=== PATIENT | male | born 1940 | race Caucasian/White ===

== ENCOUNTER → 2017-10-13 | Outpatient (CLI) | payer OTHER | LOC: FCPNEURO 23:06 | PROVIDERS: ATTEND Psychiatry & Neurology Sleep Medicine | DX: G47.33 Obstructive sleep apnea (adult) (pediatric) (principal); J96.11 Chronic respiratory failure with hypoxia ==

== ENCOUNTER 2018-02-14 14:46 | Emergency (ER) | payer OTHER ==
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
[2018-02-14] MEDS ORDERED: NS 1,000 ML IV ONE (15:18)
[2018-02-14 15:36] LABS: PLATELET COUNT 152 10^3/uL (150-400)
[2018-02-14] MEDS ORDERED: IOPAMIDOL (ISOVUE-300) 100 ML BTL ONE ×2 (15:58→17:19)
[2018-02-14] MEDS ORDERED: metroNIDAZOLE 500 MG TAB PO ONE (18:07)
[2018-02-14] MEDS ORDERED: CIPROFLOXACIN 500 MG TAB PO ONE (18:07)
[2018-02-14 18:19] VITALS: BP 141/59
== END 2018-02-14 18:21 | disposition home or self-care (01) ==
DX: K57.32 Diverticulitis of large intestine without perforation or abscess without bleeding (principal); E11.9 Type 2 diabetes mellitus without complications; I10 Essential (primary) hypertension; E86.9 Volume depletion, unspecified; Z79.82 Long term (current) use of aspirin; Z90.49 Acquired absence of other specified parts of digestive tract
CPT/HCPCS: 74177; 96360; 99285; Q9967; 82947-QW

== ENCOUNTER 2018-07-16 23:09 | Emergency (ER) | payer OTHER ==
--- NOTE | 2018-07-16 23:37 | EDPHY ---
H & P Stated Complaint: HIGH BP 210/? @ 2215-started Losartan 2 days. Time Seen by Provider: 07/16/18 23:19 HPI/ROS: HPI The patient presents with elevated blood pressure reading at home tonight. He had an initial reading of 210/80, and then 205 systolic. This was associated with a very mild frontal headache which he describes as barely noticeable. The patient has a history of labile hypertension. He has been taking hydrochlorothiazide 25 mg with lisinopril 20 mg twice daily and amlodipine 2.5 mg daily. Amlodipine was discontinued on June 24 because of erectile dysfunction. He was switched from lisinopril to losartan 100 mg once daily 2 days ago and had 2 doses of it. He has been checking his blood pressure about once a day and usual blood pressures are about 140 over 60s to 70s. He has been followed by Dr. Block. REVIEW OF SYSTEMS 10 systems were reviewed and negative with the exception of the elements mentioned in the history of present illness. PMHx: Hypertension, aortic valve replacement, CAD, anxiety, rectal dysfunction Soc Hx: No tobacco use PHYSICAL General Appearance: Alert, no distress Eyes: Pupils equal and round no pallor or injection ENT, Mouth: Mucous membranes moist Respiratory: There are no retractions, lungs are clear to auscultation Cardiovascular: Regular rate and rhythm , systolic murmur present Gastrointestinal: Abdomen is soft and non-tender, no masses, bowel sounds normal Neurological: A&O, moves all extremities Skin: Warm and dry, no rashes Musculoskeletal: Neck is supple non tender Extremities: symmetrical, full range of motion Psychiatric: Patient is oriented X 3, there is no agitation Source: Patient, Old records Exam Limitations: No limitations - Personal History Current Tetanus/Diphtheria Vaccine: Unsure Current Tetanus Diphtheria and Acellular Pertussis (TDAP): Unsure - Medical/Surgical History Hx Asthma: No Hx Chronic Respiratory Disease: No Hx Diabetes: Yes Hx Cardiac Disease: Yes Hx Renal Disease: No Hx Cirrhosis: No Hx Alcoholism: No Hx HIV/AIDS: No Hx Splenectomy or Spleen Trauma: No Other PMH: HTN-sees Umair, Aneurysm repair thoriacic aortic artery and aortic valve replacement (2010), Diabetes II, Enlarged Prostate. - Social History Smoking Status: Former smoker Constitutional: Initial Vital Signs Temperature (C) 36.5 C 07/16/18 23:11 Heart Rate 52 L 07/16/18 23:11 Respiratory Rate 16 07/16/18 23:11 Blood Pressure 182/95 H 07/16/18 23:11 O2 Sat (%) 95 07/16/18 23:11 O2 Delivery Mode Room Air Allergies/Adverse Reactions: No Known Allergies Allergy (Verified 07/16/18 23:11) Home Medications: Medication Instructions Recorded Aspirin [Aspirin 81mg (OTC)] 81 mg PO DAILY 09/23/15 Hydrochlorothiazide [HCTZ (RX)] 25 mg PO DAILY 09/23/15 LORazepam [Ativan] 0.5 mg PO BID 09/23/15 Ranitidine HCl 300 mg PO DAILY 09/23/15 Sildenafil Citrate [Viagra 25 MG 25 mg PO 09/23/15 (RX)] Co Q-10 02/14/18 Fish Oil 1,000 mg Softgel 02/14/18 Vitamin B Complex 02/14/18 metroNIDAZOLE [Metronidazole] 500 mg PO TID #21 tablet 02/14/18 Carvedilol 07/16/18 Losartan Potassium 07/16/18 Medical Decision Making Differential Diagnosis: 78-year-old male with hypertension, CAD, aortic valve replacement presents with elevated blood pressure readings tonight with no concerning symptoms. He does report a very mild headache though has a normal neurologic exam. He is in the process of starting losartan which he has taken for the last 2 days. He has stopped taking lisinopril 2 days ago. I suspect the change in medications is causing elevated blood pressure readings. I am not worried about hypertensive emergency such as renal failure, CHF exacerbation, ACS, aortic dissection, stroke given lack of concerning symptoms and normal physical exam. I had a long conversation with the patient on management of hypertension and we discussed that it is the trend that we are most concerned with. I suspect it will take a few more days for his body to equilibrate to the new medications. I have recommended that he check his blood pressure once daily at the same time each day. He can check it additionally if he is having any ongoing symptoms. He is to follow up with Dr. Block in the next 1-2 weeks if he has ongoing elevated blood pressure readings. Departure - Departure Disposition: Home, Routine, Self-Care Clinical Impression: Elevated blood pressure reading in office with diagnosis of hypertension Condition: Good Instructions: Chronic Hypertension (ED) Additional Instructions: I recommend that you continue your medications as prescribed. I would recommend that you check your blood pressure 1 time per day at the same time if possible. Please follow-up with Dr. Block if you continue to have high blood pressure readings. Please come to the emergency department if you develop weakness, headache, chest pain, abdominal pain. Referrals: Med Moncada MD [Primary Care Provider] - As per Instructions Sanchez Block MD [Medical Doctor] - As per Instructions
[2018-07-16 23:55] VITALS: BP 179/112
== END 2018-07-16 23:55 | disposition home or self-care (01) ==
DX: I10 Essential (primary) hypertension (principal)

== ENCOUNTER 2018-09-12 09:36 | Emergency (ER) | payer OTHER ==
--- NOTE | 2018-09-12 10:01 | EDPHY ---
H & P Time Seen by Provider: 09/12/18 09:39 HPI/ROS: CHIEF COMPLAINT: Abdominal pain HISTORY OF PRESENT ILLNESS: Patient has a history of diverticulitis and aortic valve replacement, and thoracic aneurysm repair and bypass surgery. He says primary care doctor on Thursday of this week because of some epigastric abdominal pain and was prescribed omeprazole. Symptoms went away on Thursday but then on Thursday night started again and he was awake for about an hour between 2 and 3:00 a.m. Today with epigastric pain. He thinks this because of the medication. Currently he is asymptomatic and does not have any pain but says he has a little bit sore when he pushes on his anterior abdomen. No chest pain, no weakness or numbness in extremities, no vomiting or diarrhea. He did have some black coffee this morning which did not change his symptoms. No radiation. REVIEW OF SYSTEMS: Eye: no change in vision ENT: no sore throat Cardiac: no chest pain or syncope Pulmonary: no cough or SOB Abdomen: HPI Musculoskeletal: no back pain Skin: no rash Neuro: no headache Constitutional: no fever : no urinary symptoms A comprehensive 10 point review of systems is otherwise negative aside from elements mentioned in the history of present illness. PAST MEDICAL HISTORY: Vascular as above, hypertension, diabetes, prostatic enlargement. Cholecystectomy. Social history: Daily alcohol General Appearance: Alert and conversant, cooperative. Eyes: No scleral icterus. ENT, Mouth: Normal mucous membranes. Respiratory: Normal respiratory effort, breath sounds equal, lungs are clear to auscultation. Cardiovascular: Regular rate and rhythm. 3/6 systolic murmur. Gastrointestinal: Epigastric and right upper quadrant tenderness to palpation but no Cristina sign. No lower abdominal tenderness. No pulsatile mass. Normal bowel sounds. Neurological: Alert, face symmetric, normal motor and sensory in extremities. Ambulatory. he has fluent speech. Skin: Warm and dry, no rashes. Musculoskeletal: No peripheral edema. Psychiatric: Not agitated. Emergency Department course/MDM: I think it is unlikely that he has diverticulitis or ACS or intestinal perforation. He has had a cholecystectomy, common duct stone or pancreatitis would be possible. Patient's symptoms really have completely resolved and he is thinking that it is related to the omeprazole. I think vascular is unlikely, duodenal perforation unlikely. Plan for CBC chemistry lipase and LFT. EKG. The patient re-evaluated results discussed. Alternative methods of treating him for likely GERD discussed including but not limited to oral antacid, smaller meals, decreasing caffeine and alcohol. Smoking Status: Former smoker Constitutional: Initial Vital Signs Temperature (C) 36.6 C 09/12/18 09:45 Heart Rate 63 09/12/18 09:45 Respiratory Rate 16 09/12/18 09:45 Blood Pressure 182/74 H 09/12/18 09:45 O2 Sat (%) 96 09/12/18 09:45 O2 Delivery Mode Room Air Allergies/Adverse Reactions: No Known Allergies Allergy (Verified 07/16/18 23:11) Home Medications: Medication Instructions Recorded Amlodipine Besylate 09/12/18 Aspirin 09/12/18 Hydrochlorothiazide 09/12/18 LORazepam 09/12/18 Losartan Potassium 09/12/18 Omeprazole 09/12/18 Medical Decision Making - Diagnostics EKG Interpretation: 12-lead EKG interpreted by me; official reading is in computer system. My interpretation is sinus rhythm with left atrial enlargement and LVH, no acute ischemic changes. - Data Points Laboratory Results: Laboratory Results 09/12/18 10:00 09/12/18 10:00 09/12/18 09/12/18 10:00 10:00 WBC 8.08 10^3/uL 10^3/uL (3.80-9.50) RBC 5.05 10^6/uL 10^6/uL (4.40-6.38) Hgb 14.7 g/dL g/dL (13.7-17.5) Hct 41.7 % % (40.0-51.0) MCV 82.6 fL fL (81.5-99.8) MCH 29.1 pg pg (27.9-34.1) MCHC 35.3 g/dL g/dL (32.4-36.7) RDW 12.5 % % (11.5-15.2) Plt Count 153 10^3/uL 10^3/uL (150-400) MPV 9.8 fL fL (8.7-11.7) Neut % (Auto) 79.1 % H % (39.3-74.2) Lymph % (Auto) 12.7 % L % (15.0-45.0) [place] % (Auto) 6.6 % % (4.5-13.0) Eos % (Auto) 0.9 % % (0.6-7.6) Baso % (Auto) 0.2 % L % (0.3-1.7) Nucleat RBC Rel Count 0.0 % % (0.0-0.2) Absolute Neuts (auto) 6.39 10^3/uL 10^3/uL (1.70-6.50) Absolute Lymphs (auto) 1.03 10^3/uL 10^3/uL (1.00-3.00) Absolute Monos (auto) 0.53 10^3/uL 10^3/uL (0.30-0.80) Absolute Eos (auto) 0.07 10^3/uL 10^3/uL (0.03-0.40) Absolute Basos (auto) 0.02 10^3/uL 10^3/uL (0.02-0.10) Absolute Nucleated RBC 0.00 10^3/uL 10^3/uL (0-0.01) Immature Gran % 0.5 % % (0.0-1.1) Immature Gran # 0.04 10^3/uL 10^3/uL (0.00-0.10) Sodium 129 mEq/L L mEq/L (135-145) Potassium 3.8 mEq/L mEq/L (3.5-5.2) Chloride 95 mEq/L L mEq/L (97-110) Carbon Dioxide 26 mEq/l mEq/l (22-31) Anion Gap 8 mEq/L mEq/L (6-14) BUN 16 mg/dL mg/dL (7-23) Creatinine 0.8 mg/dL mg/dL (0.7-1.3) Estimated GFR > 60 Glucose 133 mg/dL H mg/dL (70-100) Calcium 8.8 mg/dL mg/dL (8.5-10.4) Total Bilirubin 1.1 mg/dL mg/dL (0.1-1.4) Conjugated Bilirubin 0.2 mg/dL mg/dL (0.0-0.5) Unconjugated Bilirubin 0.9 mg/dL mg/dL (0.0-1.1) AST 33 IU/L IU/L (17-59) ALT 47 IU/L IU/L (21-72) Alkaline Phosphatase 89 IU/L IU/L (38-126) Total Protein 6.5 g/dL g/dL (6.3-8.2) Albumin 4.0 g/dL g/dL (3.5-5.0) Lipase 91 IU/L IU/L (23-300) Departure - Departure Disposition: Home, Routine, Self-Care Clinical Impression: Abdominal pain Qualifiers: Abdominal location: upper abdomen, unspecified Qualified Code(s): R10.10 - Upper abdominal pain, unspecified Condition: Good Instructions: Acute Abdominal Pain (ED) Additional Instructions: Oral antacid such as Maalox or Mylanta or Tums as discussed over the next week. You can relax your dietary sodium restriction a little bit. Referrals: Med Moncada MD [Primary Care Provider] - 2-3 days, if not improved
--- NOTE | 2018-09-12 10:08 | CPEKG ---
Test Reason : OPEN Blood Pressure : / mmHG Vent. Rate : 054 BPM Atrial Rate : 054 BPM P-R Int : 174 ms QRS Dur : 096 ms QT Int : 435 ms P-R-T Axes : 078 060 064 degrees QTc Int : 413 ms Sinus rhythm Probable left atrial enlargement Left ventricular hypertrophy Confirmed by Ze Shay ([id number]) on 09/12/2018 10:08:26 AM Referred By: Confirmed By:Ze Shay
[2018-09-12 10:14] LABS: PLATELET COUNT 153 10^3/uL (150-400)
[2018-09-12 10:47] VITALS: BP 128/63
== END 2018-09-12 10:46 | disposition home or self-care (01) ==
DX: R10.13 Epigastric pain (principal); Z95.4 Presence of other heart-valve replacement